=== PATIENT | female | born 1960 | race Caucasian/White ===

== ENCOUNTER → 2022-01-06 14:46 | Outpatient (CLI) | payer OTHER, SELFPAY ==
--- NOTE | 2022-01-06 14:51 | DI.MG.S_ITS ---
UNILATERAL RIGHT DIGITAL SCREENING MAMMOGRAM 3D/2D WITH CAD WITH AUGMENTATION: 01/06/2022 CLINICAL: Routine screening. Personal history of left breast cancer. Family history of breast cancer. Comparison is made to exams dated: 10/16/2020 mammogram, 08/07/2019 mammogram, and 06/20/2018 mammogram - Outside facility. The tissue of right breast is heterogeneously dense. This may lower the sensitivity of mammography. Current study was also evaluated with a Computer Aided Detection (CAD) system. Right breast implant is stable. No significant masses, calcifications, or other findings are seen in the breast. There has been no significant interval change. IMPRESSION: NEGATIVE There is no mammographic evidence of malignancy. A 1 year screening mammogram is recommended. This exam was interpreted at Station ID: [id number]. NOTE: For mammograms, a report in lay terms will be sent to the patient. Approximately 15% of breast malignancies will not be visualized mammographically. In the management of a palpable breast mass, a negative mammogram must not discourage biopsy of a clinically suspicious lesion. Electronically Signed By: Robert polanco/diamante:01/06/2022 15:24:49 letter sent: Normal Exam ACR BI-RADS Category 1: Negative [id number]
== END ==
PROVIDERS: PCP Internal Medicine; Referring Provider Internal Medicine; Visit Provider Internal Medicine
DX: Z12.31 Encounter for screening mammogram for malignant neoplasm of breast (principal); Z80.3 Family history of malignant neoplasm of breast; Z85.3 Personal history of malignant neoplasm of breast
CPT/HCPCS: 77063; 77067

== ENCOUNTER → 2022-07-27 10:33 | Outpatient (CLI) | payer OTHER, SELFPAY ==
[2022-07-27 12:07] LABS: Hematocrit 42.5 % (36-46); Hemoglobin 13.9 g/dL (12.0-16.0)
[2022-07-27 12:33] LABS: BUN Creatinine Ratio 17.8 (6-22); Blood Urea Nitrogen 18 mg/dL (7-17); Calcium 9.1 mg/dL (8.4-10.2); Carbon Dioxide 30 mmol/L (22-32); Chloride 95 mmol/L (98-107); Estimated Glomerular Filt Rate > 60 mL/min (>60); Glucose 102 mg/dL (80-110); HEMOLYSIS < 15 (0-50); Potassium 4.8 mmol/L (3.4-5.1); Sodium 134 mmol/L (137-145)
[2022-07-27 15:09] LABS: Creatinine Urine Random 29.9 mg/dL; Protein (Total) Urine Random 12 mg/dL (0-12)
== END ==
PROVIDERS: PCP Internal Medicine; Referring Provider Student in an Organized Health Care Education/Training Program; Visit Provider Student in an Organized Health Care Education/Training Program
DX: N05.9 Unspecified nephritic syndrome with unspecified morphologic changes; D64.9 Anemia, unspecified; R80.9 Proteinuria, unspecified
CPT/HCPCS: 36415; 80048; 82570; 84156; 85014; 85018

== ENCOUNTER → 2022-08-16 14:28 | Outpatient (CLI) | payer OTHER, SELFPAY ==
--- NOTE | 2022-08-16 14:29 | DI.US.S_ITS ---
PROCEDURE: US RENAL COMPLETE INDICATIONS: CHRONIC KIDNEY DISEASE STAGE 2 MILD TECHNIQUE: Real-time scanning was performed of the kidneys and bladder, with image documentation. COMPARISON: None. FINDINGS: Kidneys: Kidneys are normal in size. Right kidney measures 7.6 cm long, although a portion of the superior and inferior pole may have been excluded and the right kidney is suspected to be within normal limits in size. Left kidney measures 10.2 cm long. Right renal cortical thickness is 1.4 cm; left renal cortical thickness is 1.7 cm. Renal cortical echotexture is normal. No hydronephrosis or nephrolithiasis. No suspicious solid mass lesions. Bladder: Pre-void bladder volume is 495 mL. Post-void residual is 18 mL. Pre-void images demonstrate no intraluminal masses or stones. On pre-void images, bilateral ureteral jets are noted with color Doppler interrogation. (Of note, ureteral jets may not be detectable in up to 25% of cases due to insufficient differences in specific gravity between ureteral and bladder urine). Miscellaneous: No free pelvic fluid. A lobular cyst is seen in the right hepatic lobe measuring up to 5.2 cm maximum dimension with anechoic contents. No suspicious solid nodular component is seen. IMPRESSION: 1. No hydronephrosis or nephrolithiasis. 2. Incidental benign right hepatic cyst. Approved by: Robert Vance M.D. on 08/16/2022 at 17:13
== END ==
PROVIDERS: PCP Internal Medicine; Referring Provider Student in an Organized Health Care Education/Training Program; Visit Provider Student in an Organized Health Care Education/Training Program
DX: N18.2 Chronic kidney disease, stage 2 (mild) (principal); K76.89 Other specified diseases of liver
CPT/HCPCS: 76770

== ENCOUNTER → 2022-11-08 08:30 | Outpatient (CLI) | payer OTHER, SELFPAY ==
[2022-11-08 09:10] LABS: Hematocrit 43.6 % (36-46); Hemoglobin 14.6 g/dL (12.0-16.0)
[2022-11-08 09:13] LABS: Appearance Urine UA CLEAR; Bilirubin Urine UA NEGATIVE (NEGATIVE); Color Urine UA YELLOW; Glucose Urine UA NEGATIVE (Negative); Ketones Urine UA NEGATIVE (NEGATIVE); Leukocyte Esterase Urine UA 1+ (NEGATIVE); Nitrite Urine UA NEGATIVE (Negative); Occult Blood Urine UA NEGATIVE (Negative); Protein Urine UA NEGATIVE (Negative); Specific Gravity Urine UA 1.015 (1.000-1.035); Urobilinogen Urine UA 0.2 E.U./dL (0.2)
[2022-11-08 09:24] LABS: Creatinine Urine Random 211.2 mg/dL; Protein (Total) Urine Random 8 mg/dL (0-12); Protein Creatinine Ratio Urine 0.03 GRAM/24H
[2022-11-08 09:31] LABS: Bacteria Urine Moderate (10-30); RBC Urine None Seen (0-5/HPF); Squamous Epithelial Cell Urine 5-10 /HPF (0-5/HPF); WBC Urine 5-10/HPF (0-5/HPF)
[2022-11-08 09:32] LABS: Culture Indicated Urine Specimen Cultured
[2022-11-08 09:47] LABS: BUN Creatinine Ratio 15.1 (6-22); Blood Urea Nitrogen 14 mg/dL (7-17); Calcium 9.1 mg/dL (8.4-10.2); Carbon Dioxide 30 mmol/L (22-32); Chloride 99 mmol/L (98-107); Estimated Glomerular Filt Rate > 60 mL/min (>60); Glucose 109 mg/dL (80-110); HEMOLYSIS < 15 (0-50); Potassium 4.4 mmol/L (3.4-5.1); Sodium 135 mmol/L (137-145)
[2022-11-10 07:09] LABS: Parathyroid Hormone Int 24 pg/mL (15-65)
== END ==
PROVIDERS: PCP Internal Medicine; Referring Provider Student in an Organized Health Care Education/Training Program; Visit Provider Student in an Organized Health Care Education/Training Program
DX: N05.9 Unspecified nephritic syndrome with unspecified morphologic changes (principal); N25.81 Secondary hyperparathyroidism of renal origin; D64.9 Anemia, unspecified; N30.00 Acute cystitis without hematuria; R80.9 Proteinuria, unspecified; E83.30 Disorder of phosphorus metabolism, unspecified
CPT/HCPCS: 36415; 80048; 81001; 82570; 83970; 84100; 84156; 85014; 85018; 87086; 87147

== ENCOUNTER → 2022-12-17 10:19 | Outpatient (CLI) | payer OTHER, SELFPAY ==
[2022-12-17 12:20] LABS: BUN Creatinine Ratio 16.7 (6-22); Blood Urea Nitrogen 16 mg/dL (7-17); Calcium 9.1 mg/dL (8.4-10.2); Carbon Dioxide 32 mmol/L (22-32); Chloride 98 mmol/L (98-107); Estimated Glomerular Filt Rate > 60 mL/min (>60); Glucose 98 mg/dL (80-110); HEMOLYSIS < 15 (0-50); Potassium 4.6 mmol/L (3.4-5.1); Sodium 133 mmol/L (137-145)
== END ==
PROVIDERS: PCP Internal Medicine; Referring Provider Student in an Organized Health Care Education/Training Program; Visit Provider Student in an Organized Health Care Education/Training Program
DX: N05.9 Unspecified nephritic syndrome with unspecified morphologic changes (principal)
CPT/HCPCS: 36415; 80048

== ENCOUNTER → 2023-03-20 11:31 | Outpatient (CLI) | payer OTHER, SELFPAY ==
--- NOTE | 2023-03-20 11:32 | DI.RAD.S_ITS ---
PROCEDURE: XR FOREARM LT 2V INDICATIONS: Forearm injury TECHNIQUE: 2 views of the forearm were acquired. COMPARISON: [facility], CR, XR WRIST LT MIN 3V, 03/20/2023, 11:35. FINDINGS: Bones: There is partial visualization of the distal radius fracture. No additional fracture can be seen. Degenerative changes are seen throughout, which are most prominent involving the 1st carpometacarpal joint. Milder degenerative changes are seen elsewhere. Soft tissues: No suspicious soft tissue calcifications or masses. IMPRESSION: Distal radius fracture. Dictated by: Jose Alfredo Palacios M.D. on 03/20/2023 at 15:08 Approved by: Jose Alfredo Palacios M.D. on 03/20/2023 at 15:09
--- NOTE | 2023-03-20 11:32 | DI.RAD.S_ITS ---
PROCEDURE: XR WRIST LT MIN 3V INDICATIONS: Wrist injury TECHNIQUE: 4 views of the wrist were acquired. COMPARISON: [facility], CR, XR FOREARM LT 2V, 03/20/2023, 11:35. FINDINGS: Bones: There is an impacted, mildly volarly angulated fracture of the distal radius, with intra-articular involvement. No associated ulnar styloid fracture can be seen. No additional fractures are detected. Degenerative changes are seen throughout, which are most prominent involving the 1st carpometacarpal joint. Milder degenerative changes are seen elsewhere. Scaphoid view: No navicular fractures are seen. Soft tissues: No suspicious soft tissue calcifications. IMPRESSION: Distal radius fracture, with impaction and intra-articular involvement. Dictated by: Jose Alfredo Palacios M.D. on 03/20/2023 at 15:09 Approved by: Jose Alfredo Palacios M.D. on 03/20/2023 at 15:10
== END ==
PROVIDERS: PCP Internal Medicine; Referring Provider Nurse Practitioner Family; Visit Provider Nurse Practitioner Family
DX: S52.502A Unspecified fracture of the lower end of left radius, initial encounter for closed fracture (principal); S49.92XA Unspecified injury of left shoulder and upper arm, initial encounter; X58.XXXA Exposure to other specified factors, initial encounter
CPT/HCPCS: 73090; 73110

== ENCOUNTER → 2023-04-27 15:13 | Outpatient (CLI) | payer OTHER, SELFPAY ==
--- NOTE | 2023-04-27 | DI.CT.S_ITS ---
PROCEDURE: CT WRIST LEFT WITHOUT CON INDICATIONS: LEFT WRIST PAIN TECHNIQUE: Noncontrast 1 mm axial sections acquired through the carpal bones, with coronal and sagittal reformats. COMPARISON: [facility], CR, XR WRIST LT MIN 3V, 03/20/2023, 11:35. [facility], CR, XR WRIST 3+ VIEWS LEFT, 04/21/2023, 9:58. FINDINGS: Image quality: Excellent. Bones: Comminuted intra-articular fracture of the distal radius is again seen. Multiple fracture lines are seen extending to the distal radial articular surface without measurable step-off. Fracture also extends into the distal radioulnar joint without osseous step-off. No significant dorsal tilting of the distal radius. Areas of the fracture are slightly less prominent, which may indicate early healing changes. No significant periosteal new bone formation is seen. The distal ulna appears to be intact. Scaphoid is intact. No additional osseous fracture is seen in the wrist. Severe degenerative changes are seen at the 1st carpometacarpal joint. The bones are osteopenic. Soft tissues: Soft tissue edema and small joint effusions are seen surrounding the wrist. The articular cartilages, ligaments, and tendons are not well evaluated with standard CT. However, no definite tendon entrapment is seen. The musculature surrounding the wrist is normal in bulk. IMPRESSION: 1. Comminuted minimally displaced intra-articular fracture of the distal radius. No significant articular surface step-off is seen. Mild healing changes are present. 2. Severe 1st carpometacarpal osteoarthrosis. Approved by: Robert Vance M.D. on 04/28/2023 at 9:18
== END ==
PROVIDERS: PCP Internal Medicine; Referring Provider Orthopaedic Surgery Orthopaedic Surgery of the Spine; Visit Provider Orthopaedic Surgery Orthopaedic Surgery of the Spine
DX: S52.572A Other intraarticular fracture of lower end of left radius, initial encounter for closed fracture (principal); M19.032 Primary osteoarthritis, left wrist
CPT/HCPCS: 73200

== ENCOUNTER → 2023-06-16 09:02 | Outpatient (CLI) | payer OTHER, SELFPAY ==
[2023-06-16 10:22] LABS: Hematocrit 42.5 % (36-46); Hemoglobin 14.2 g/dL (12.0-16.0)
[2023-06-16 10:34] LABS: BUN Creatinine Ratio 19.1 (6-22); Blood Urea Nitrogen 17 mg/dL (7-17); Calcium 9.8 mg/dL (8.4-10.2); Carbon Dioxide 29 mmol/L (22-32); Chloride 97 mmol/L (98-107); Estimated Glomerular Filt Rate > 60 mL/min (>60); Glucose 99 mg/dL (80-110); HEMOLYSIS < 15 (0-50); Potassium 5.3 mmol/L (3.4-5.1); Sodium 132 mmol/L (137-145)
[2023-06-16 10:42] LABS: Creatinine Urine Random 17.8 mg/dL; Protein (Total) Urine Random 12 mg/dL (0-12); Protein Creatinine Ratio Urine 0.67 GRAM/24H
[2023-06-18 06:30] LABS: Parathyroid Hormone Int 21 pg/mL (15-65)
== END ==
PROVIDERS: PCP Internal Medicine; Referring Provider Student in an Organized Health Care Education/Training Program; Visit Provider Student in an Organized Health Care Education/Training Program
DX: N05.9 Unspecified nephritic syndrome with unspecified morphologic changes (principal); D70.9 Neutropenia, unspecified; D63.1 Anemia in chronic kidney disease; N25.81 Secondary hyperparathyroidism of renal origin; R80.9 Proteinuria, unspecified
CPT/HCPCS: 36415; 80048; 82570; 83970; 84156; 85014; 85018

== ENCOUNTER → 2023-06-21 09:41 | Outpatient (CLI) | payer OTHER, SELFPAY ==
[2023-06-21 11:01] LABS: HEMOLYSIS < 15 (0-50); Potassium 4.3 mmol/L (3.4-5.1)
== END ==
PROVIDERS: PCP Internal Medicine; Referring Provider Student in an Organized Health Care Education/Training Program; Visit Provider Student in an Organized Health Care Education/Training Program
DX: E87.5 Hyperkalemia (principal)
CPT/HCPCS: 36415; 84132

== ENCOUNTER → 2023-07-14 15:14 | Outpatient (CLI) | payer OTHER, SELFPAY ==
--- NOTE | 2023-07-14 | DI.RAD.S_ITS ---
Bone Density Report Name: SUSSY BIRMINGHAM Age: 62 Sex: Female Ethnicity: White Date of : 1960 Indication: postmenopausal; screening for osteoporosis; Referring Provider: BRUNO SANTOS Study: Bone densitometry was performed. Exam Date: July 14, 2023 Accession number: [id number] Bone Density: Region BMD T-score Z-score Classification AP Spine(L1-L4) 0.762 -2.6 -0.9 Osteoporosis Femoral Neck (Left) 0.717 -1.2 0.3 Osteopenia Total Hip (Left) 0.769 -1.4 -0.2 Osteopenia Femoral Neck (Right) 0.698 -1.4 0.1 Osteopenia Total Hip (Right) 0.741 -1.6 -0.4 Osteopenia Total Hip Mean 0.755 -1.5 -0.3 Osteopenia World Health Organization criteria for BMD impression classify patients as: Normal (T-score at or above -1.0), Osteopenia (T-score between -1.0 and -2.5), or Osteoporosis (T-score at or below -2.5). 10-year Fracture Risk: FRAX not reported because: Some T-score for Spine Total or Hip Total or Femoral Neck at or below -2.5 Impression: The patient has osteoporosis, based on the Total Spine T-score. Discussion: INCREASED RISK OF FRACTURE. BONE DENSITY IS UNDESIRABLY LOW AT ONE OR MORE SKELETAL SITES, CONSISTENT WITH POSTMENOPAUSAL OSTEOPOROSIS. This patient's lowest T-score meets the World Health Organization's (WHO) criteria for osteoporosis at one or more sites (T-score -2.5 or below). In untreated patients, the risk of osteoporotic fracture increases approximately two-fold for each 1.0 SD decrease in T-score. Low bone density is not the only risk factor for fracture; also consider factors such as patient's age, frailty or poor health, risk of falling, risk of injury, previous osteoporotic fracture, family history of osteoporosis, cigarette smoking, low body weight, etc. Not everyone with low bone mineral density has osteoporosis; osteomalacia and other metabolic bone disorders should also be considered. Patients who have osteoporosis should be evaluated for specific diseases and conditions (secondary causes) that may cause or contribute to bone loss. The [place] [employer]ocrinologists (AACE) and National Osteoporosis Foundation (NOF) recommend pharmacologic intervention for all postmenopausal women whose T-score is in this range. The patient should follow a healthful lifestyle (good nutrition with adequate calcium and vitamin D, and appropriate weight-bearing exercise). Follow-Up: Consider a repeat BMD and Vertebral Fracture Assessment (VFA) exam in 2 years or sooner if medically necessary, to reassess this patient's status. Reported by: UCHE GONSALEZ M.D. on 07/14/2023 3:32:00 PM.
== END ==
LOC: RAD 15:14
PROVIDERS: PCP Internal Medicine; Referring Provider Internal Medicine; Visit Provider Internal Medicine
DX: Z87.81 Personal history of (healed) traumatic fracture (principal); M81.0 Age-related osteoporosis without current pathological fracture; M06.9 Rheumatoid arthritis, unspecified; Z78.0 Asymptomatic menopausal state
CPT/HCPCS: 77080

== ENCOUNTER → 2023-10-10 14:44 | Outpatient (CLI) | payer OTHER, SELFPAY ==
--- NOTE | 2023-10-10 14:45 | DI.MG.S_ITS ---
UNILATERAL RIGHT DIGITAL SCREENING MAMMOGRAM 3D/2D WITH CAD POST MASTECTOMY WITH AUGMENTATION: 10/10/2023 CLINICAL: Routine screening. Personal history of left breast cancer. Family History of Breast Cancer. Comparison is made to exams dated: 01/06/2022 mammogram - [facility], 10/16/2020 mammogram, and 08/07/2019 mammogram - Outside facility. The right breast is heterogeneously dense, which may obscure small masses (category c / 51-75% glandular tissue). Current study was also evaluated with a Computer Aided Detection (CAD) system. Right breast implant is stable. No significant masses, calcifications, or other findings are seen in the breast. There has been no significant interval change. IMPRESSION: NEGATIVE There is no mammographic evidence of malignancy. A 1 year screening mammogram is recommended. This exam was interpreted at Station ID: [id number]. NOTE: For mammograms, a report in lay terms will be sent to the patient. Approximately 15% of breast malignancies will not be visualized mammographically. In the management of a palpable breast mass, a negative mammogram must not discourage biopsy of a clinically suspicious lesion. Electronically Signed By: Osmani mensah/diamante:10/10/2023 16:07:16 letter sent: Normal Exam ACR BI-RADS Category 1: Negative 3341F
== END ==
PROVIDERS: PCP Family Medicine; Referring Provider Family Medicine; Visit Provider Family Medicine
DX: Z12.31 Encounter for screening mammogram for malignant neoplasm of breast (principal); Z85.3 Personal history of malignant neoplasm of breast; Z80.3 Family history of malignant neoplasm of breast; R92.333 Mammographic heterogeneous density, bilateral breasts
CPT/HCPCS: 77063; 77067

== ENCOUNTER → 2023-11-22 08:54 | Outpatient (CLI) | payer OTHER, SELFPAY ==
[2023-11-22 11:34] LABS: Hematocrit 41.9 % (36-46)
[2023-11-22 11:54] LABS: BUN Creatinine Ratio 15.8 (6-22); Blood Urea Nitrogen 15 mg/dL (7-17); Calcium 9.5 mg/dL (8.4-10.2); Carbon Dioxide 30 mmol/L (22-32); Chloride 102 mmol/L (98-107); Estimated Glomerular Filt Rate > 60 mL/min (>60); Glucose 81 mg/dL (80-110); HEMOLYSIS < 15 (0-50); Sodium 136 mmol/L (137-145)
[2023-11-22 15:37] LABS: Creatinine Urine Random 21.8 mg/dL; Protein (Total) Urine Random 15 mg/dL (0-12); Protein Creatinine Ratio Urine 0.68 GRAM/24H
[2023-11-23 10:36] LABS: Parathyroid Hormone Int 25 pg/mL (15-65)
== END ==
LOC: LAB 08:57
PROVIDERS: PCP Family Medicine; Referring Provider Student in an Organized Health Care Education/Training Program; Visit Provider Student in an Organized Health Care Education/Training Program
DX: N05.9 Unspecified nephritic syndrome with unspecified morphologic changes (principal); D70.9 Neutropenia, unspecified; D63.1 Anemia in chronic kidney disease; N25.81 Secondary hyperparathyroidism of renal origin; R80.9 Proteinuria, unspecified
CPT/HCPCS: 36415; 80048; 82570; 83970; 84156; 85014; 85018

== ENCOUNTER → 2024-05-28 12:40 | Outpatient (CLI) | payer OTHER, SELFPAY ==
[2024-05-28 13:36] LABS: Hematocrit 41.4 % (36-46); Hemoglobin 13.7 g/dL (12.0-16.0)
[2024-05-28 13:56] LABS: BUN Creatinine Ratio 12.3 (6-22); Blood Urea Nitrogen 14 mg/dL (7-17); Calcium 9.5 mg/dL (8.4-10.2); Carbon Dioxide 32 mmol/L (22-32); Chloride 98 mmol/L (98-107); Estimated Glomerular Filt Rate 53 mL/min (>60); Glucose 106 mg/dL (80-110); HEMOLYSIS < 15 (0-50); Potassium 4.9 mmol/L (3.4-5.1); Sodium 133 mmol/L (137-145)
[2024-05-28 16:50] LABS: Creatinine Urine Random 75.15 mg/dL; Protein (Total) Urine Random 11 mg/dL (0-12); Protein Creatinine Ratio Urine 0.14 GRAM/24H
[2024-05-31 10:12] LABS: Parathyroid Hormone Int 17 pg/mL (15-65)
== END ==
PROVIDERS: PCP Family Medicine; Referring Provider Student in an Organized Health Care Education/Training Program; Visit Provider Student in an Organized Health Care Education/Training Program
DX: N05.9 Unspecified nephritic syndrome with unspecified morphologic changes (principal); D70.9 Neutropenia, unspecified; D63.1 Anemia in chronic kidney disease; N25.81 Secondary hyperparathyroidism of renal origin; R80.9 Proteinuria, unspecified
CPT/HCPCS: 36415; 80048; 82570; 83970; 84156; 85014; 85018

== ENCOUNTER → 2024-06-02 11:23 | Outpatient (CLI) | payer OTHER, SELFPAY ==
[2024-06-02 12:09] LABS: BUN Creatinine Ratio 18.5 (6-22); Blood Urea Nitrogen 20 mg/dL (7-17); Calcium 9.6 mg/dL (8.4-10.2); Carbon Dioxide 30 mmol/L (22-32); Chloride 98 mmol/L (98-107); Estimated Glomerular Filt Rate 57 mL/min (>60); Glucose 94 mg/dL (80-110); HEMOLYSIS < 15 (0-50); Potassium 4.1 mmol/L (3.4-5.1); Sodium 134 mmol/L (137-145)
== END ==
PROVIDERS: PCP Family Medicine; Referring Provider Student in an Organized Health Care Education/Training Program; Visit Provider Student in an Organized Health Care Education/Training Program
DX: N05.9 Unspecified nephritic syndrome with unspecified morphologic changes (principal)
CPT/HCPCS: 36415; 80048

== ENCOUNTER → 2024-08-24 14:15 | Outpatient (CLI) | payer MEDICARE, SELFPAY ==
--- NOTE | 2024-08-24 14:17 | EKG_ITS ---
[address] [address] Test Date: 2024-08-24 Pat Name: Denisha Donohue Department: [facility] Room: Gender: Female [employer] Supervisor: ROBYN : 1960 Requested By: Order Number: [id number] Reading MD: Preston Beltran Measurements Intervals [place] Rate: 48 P: 68 [place]: 136 QRS: 65 QRSD: 82 T: 67 QT: 486 QTc: 434 Interpretive Statements Sinus bradycardia Minimal voltage criteria for LVH, may be normal variant ( Sokolow-Hicks ) Electronically Signed On 08-24-2024 16:26:33 PST by Preston Beltran
== END ==
LOC: RESP 14:16
PROVIDERS: PCP Family Medicine; Referring Provider Family Medicine; Visit Provider Family Medicine
DX: I44.1 Atrioventricular block, second degree (principal)
CPT/HCPCS: 93005

== ENCOUNTER → 2024-10-03 10:51 | Outpatient (CLI) | payer MEDICARE, SELFPAY ==
--- NOTE | 2024-10-03 10:58 | DI.RAD.S_ITS ---
PROCEDURE: XR THORACIC SPINE 3V INDICATIONS: OSTEOPOROSIS TECHNIQUE: 3 views of the thoracic spine were acquired. COMPARISON: None. FINDINGS: Bones: No fractures or dislocations. Minimal S-shaped scoliosis noted. No suspicious bony lesions. 12 pairs of ribs are noted, and appear intact where visualized. Soft tissues: No paravertebral stripe thickening. IMPRESSION: No acute bony abnormality. Dictated by: Donny Kim M.D. on 10/04/2024 at 4:21 Approved by: Donny Kim M.D. on 10/04/2024 at 4:22
--- NOTE | 2024-10-03 10:58 | DI.RAD.S_ITS ---
PROCEDURE: XR LUMBAR SPINE MIN 4V INDICATIONS: OSTEOPOROSIS TECHNIQUE: 5 views of the lumbar spine were acquired, including bilateral oblique views. COMPARISON: None. FINDINGS: Bones: 5 nonrib-bearing vertebrae are present. Moderate L5-S1 disc height loss with adjacent endplate sclerosis and anterior osteophytosis. There is normal bony alignment. No vertebral body compression fractures. No suspicious bony lesions. Soft tissues: Overlying bowel gas pattern is normal. No suspicious soft tissue calcifications. Oblique images: No pars defects. IMPRESSION: Moderate degenerative change at the L5-S1 level without evidence of acute bony abnormality. Dictated by: Donny Kim M.D. on 10/04/2024 at 4:20 Approved by: Donny Kim M.D. on 10/04/2024 at 4:21
[2024-10-03 12:47] LABS: Calcium 9.7 mg/dL (8.4-10.2)
[2024-10-03 13:02] LABS: Free T4, Direct Thyroxine 0.81 ng/dL (0.78-2.19)
[2024-10-03 13:15] LABS: Thyroid Stimulating Hormone 1.35 uIU/mL (0.47-4.68)
[2024-10-03 16:01] LABS: Vitamin D 25 Hydroxy (D3) 84.3 ng/mL (30.0-100.0)
[2024-10-04 05:10] LABS: Parathyroid Hormone Int 23 pg/mL (15-65)
[2024-10-05 16:36] LABS: Ionized Calcium 4.8 mg/dL (4.5-5.6)
[2024-10-08 13:40] LABS: Albumin 4.1 g/dL (2.9-4.4); Alpha-1-Globulin 0.2 g/dL (0.0-0.4); Alpha-2-Globulin 0.6 g/dL (0.4-1.0); Gamma Globulin 0.8 g/dL (0.4-1.8); Globulin Total 2.5 g/dL (2.2-3.9); Protein, Total 6.6 g/dL (6.0-8.5)
== END ==
PROVIDERS: PCP Family Medicine; Referring Provider Internal Medicine Rheumatology; Visit Provider Internal Medicine Rheumatology
DX: M81.0 Age-related osteoporosis without current pathological fracture (principal); M51.379 Other intervertebral disc degeneration, lumbosacral region without mention of lumbar back pain or lower extremity pain
CPT/HCPCS: 36415; 72072; 72110; 82306; 82310; 82330; 82784; 83516; 83970; 84155; 84165; 84439; 84443; 86231; 86255; 86364

== ENCOUNTER → 2024-10-08 14:42 | Outpatient (CLI) | payer MEDICARE, SELFPAY ==
--- NOTE | 2024-10-08 14:44 | DI.RAD.S_ITS ---
PROCEDURE: XR DEXA AXIAL SKELETON INDICATIONS: Osteoporosis, post menopausal COMPARISON: [facility], CR, XR DEXA AXIAL SKELETON, 07/14/2023, 15:25. FINDINGS: Lumbar Spine: Bone mineral density 0.798 g/cm2, T score -2.3, osteopenia change from previous 4.7% Statistical significance of bone mineral density change cannot be determined due to dissimilar scan types or analysis method.. Left Femoral Neck: Bone mineral density 0.720 g/cm2, T score -1.2, osteopenia, change from previous 0.3% Statistical significance of bone mineral density change cannot be determined due to dissimilar scan types or analysis method.. Left Hip: Bone mineral density 0.812 g/cm2, T score -1.1, osteopenia, change from previous 5.6% Statistical significance of bone mineral density change cannot be determined due to dissimilar scan types or analysis method.. Right Femoral Neck: Bone mineral density 0.709 g/cm2, T score -1.3, osteopenia, change from previous 1.6% Statistical significance of bone mineral density change cannot be determined due to dissimilar scan types or analysis method.. Right Hip: Bone mineral density 0.783 g/cm2, T score -1.3, osteopenia, change from previous 5.6% Statistical significance of bone mineral density change cannot be determined due to dissimilar scan types or analysis method.. Fracture Risk Calculation (when applicable): 10-year fracture risk of a major osteoporotic fracture 7.7 percent and of a hip fracture 0.7 percent. (T score greater or equal to -1.0 to: NORMAL) (T score from -1.1 to -2.4: OSTEOPENIA) (T score less than or equal to -2.5: OSTEOPOROSIS) IMPRESSION: Osteopenia elevates the patient's 10 year fracture risk as described. Increased bone mineral density compared to priors. Statistical significance of bone mineral density change cannot be determined due to dissimilar scan types or analysis method. Follow-up guidelines as follows: Osteoporosis: Consider a repeat DEXA and Vertebral Fracture Assessment (VFA) exam in 2 years or sooner if medically necessary, to reassess this patient's status. Osteopenia: Consider a repeat DEXA in 2-3 years to reassess this patient's status, or if there is a new clinical indication. Normal: Consider a repeat DEXA in 5 years or sooner, or if there is a new clinical indication. All treatment decisions require clinical judgment and consideration of individual patient factors, including patient preferences, comorbidities, previous drug use, risk factors not captured in the FRAX model (e.g., frailty, falls, vitamin D deficiency, increased bone turnover, interval significant decline in bone density ) and possible under- or over-estimation of fracture risk by FRAX. In addition, the NOF Guide recommends that FDA-approved medical therapies be considered in postmenopausal women and men age >= 50 years with a: * Hip or vertebral (clinical or morphometric) fracture * T-score of <=-2.5 at the spine or hip * Ten-year fracture probability by FRAX of >= 3% for hip fracture or >=20% for major osteoporotic fracture. Dictated by: Leatha Monte M.D. on 10/08/2024 at 15:52 Approved by: Leatha Monte M.D. on 10/08/2024 at 15:54
== END ==
PROVIDERS: PCP Family Medicine; Referring Provider Internal Medicine Rheumatology; Visit Provider Internal Medicine Rheumatology
DX: M81.0 Age-related osteoporosis without current pathological fracture (principal)
CPT/HCPCS: 77080

== ENCOUNTER → 2024-11-30 09:41 | Outpatient (CLI) | payer MEDICARE, SELFPAY ==
[2024-11-30 10:25] LABS: Hematocrit 41.5 % (36-46)
[2024-11-30 10:32] LABS: BUN Creatinine Ratio 15.5 (6-22); Blood Urea Nitrogen 15 mg/dL (7-17); Calcium 9.1 mg/dL (8.4-10.2); Carbon Dioxide 28 mmol/L (22-32); Chloride 99 mmol/L (98-107); Estimated Glomerular Filt Rate > 60 mL/min (>60); Glucose 107 mg/dL (70-99); HEMOLYSIS < 15 (0-50); Potassium 5.1 mmol/L (3.4-5.1); Sodium 133 mmol/L (137-145)
[2024-11-30 10:36] LABS: Creatinine Urine Random 20.66 mg/dL; Protein (Total) Urine Random 13 mg/dL (0-12); Protein Creatinine Ratio Urine 0.62 GRAM/24H
[2024-12-01 09:10] LABS: Parathyroid Hormone Int 27 pg/mL (15-65)
== END ==
PROVIDERS: PCP Family Medicine; Referring Provider Student in an Organized Health Care Education/Training Program; Visit Provider Student in an Organized Health Care Education/Training Program
DX: N05.9 Unspecified nephritic syndrome with unspecified morphologic changes (principal); D70.9 Neutropenia, unspecified; D63.1 Anemia in chronic kidney disease; R80.9 Proteinuria, unspecified; N25.81 Secondary hyperparathyroidism of renal origin
CPT/HCPCS: 36415; 80048; 82570; 83970; 84156; 85014; 85018

== ENCOUNTER → 2024-12-10 11:57 | Outpatient (CLI) | payer MEDICARE, SELFPAY | PROVIDERS: PCP Family Medicine; Visit Provider Chiropractor | DX: R30.0 Dysuria (principal) | CPT/HCPCS: 87086 ==

== ENCOUNTER → 2025-03-28 13:55 | Outpatient (CLI) | payer MEDICARE, SELFPAY ==
[2025-03-28 14:25] LABS: Hemoglobin 13.8 g/dL (12.0-16.0)
[2025-03-28 14:53] LABS: Albumin 4.1 g/dL (3.5-5.0); Blood Urea Nitrogen 18 mg/dL (7-17); Calcium 9.5 mg/dL (8.4-10.2); Carbon Dioxide 30 mmol/L (22-32); Chloride 102 mmol/L (98-107); Estimated Glomerular Filt Rate > 60 mL/min (>60); Glucose 95 mg/dL (70-99); HEMOLYSIS < 15 (0-50); Phosphorous 4.6 mg/dL (2.8-4.1); Potassium 4.9 mmol/L (3.4-5.1); Sodium 137 mmol/L (137-145)
[2025-03-28 15:19] LABS: Protein (Total) Urine Random 13 mg/dL (0-12); Protein Creatinine Ratio Urine 0.64 GRAM/24H
[2025-03-31 09:08] LABS: Calcium 9.5 mg/dL (8.7-10.3); Parathyroid Hormone, Intact 22 pg/mL (15-65)
== END ==
PROVIDERS: PCP Family Medicine; Referring Provider Student in an Organized Health Care Education/Training Program; Visit Provider Student in an Organized Health Care Education/Training Program
DX: N18.2 Chronic kidney disease, stage 2 (mild) (principal)
CPT/HCPCS: 36415; 80069; 82310; 82570; 83970; 84156; 85018

== ENCOUNTER → 2025-06-19 09:22 | Outpatient (CLI) | payer MEDICARE, SELFPAY ==
--- NOTE | 2025-06-19 09:23 | DI.RAD.S_ITS ---
PROCEDURE: XR RIBS LT MIN 3V W CXR1V INDICATIONS: Fall onto left ribs 4-7 anterior/lateral TECHNIQUE: 2 views of the ribs were acquired, along with a single view chest. COMPARISON: None. FINDINGS: Surgical changes and devices: None. Bones and chest wall: No fractures or dislocations. No suspicious bony lesions. Overlying soft tissues appear unremarkable. Lungs and pleura: Left costophrenic angle appears blunted. Lungs otherwise appear clear. Mediastinum: Mediastinal contours appear normal. Heart size is normal. IMPRESSION: 1. No displaced rib fracture or pneumothorax. 2. Blunted appearance of the left costophrenic angle, may represent small effusion, atelectasis or consolidation. Dictated by: Nathaniel Vasques M.D. on 06/19/2025 at 10:25 Approved by: Nathaniel Vasques M.D. on 06/19/2025 at 10:26
== END ==
PROVIDERS: PCP Family Medicine; Referring Provider Nurse Practitioner Family; Visit Provider Nurse Practitioner Family
DX: R07.89 Other chest pain (principal)
CPT/HCPCS: 71101